=== PATIENT | male | born 1985 | race Caucasian/White ===

== ENCOUNTER 2016-08-25 18:09 | Emergency (ER) | payer SELFPAY ==
[~2016-08-25] VITALS: Ht 175.3 cm; Wt 56.7 kg
[2016-08-25 18:10] VITALS: BP 116/76
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
--- NOTE | 2016-08-25 18:30 | NUR ---
ERMD AT BEDSIDE
[2016-08-25 18:42] VITALS: BP 118/62
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
== END 2016-08-25 18:44 ==
LOC: MED 18:09
DX: Z02.89 Encounter for other administrative examinations (principal)